=== PATIENT | female | born 1940 | race Caucasian/White ===

== ENCOUNTER → 2024-02-14 08:13 | Outpatient (CLI) | payer MEDICARE, OTHER, SELFPAY ==
--- NOTE | 2024-02-14 | DI.ECHO.S_ITS ---
[facility] : : [address] : : [place] : : [id number] : : Phone: [phone] Echocardiogram Report + + :Name: BETHANY MORA Study Date: 02/14/2024 Height: 64 in : :[facility] ReadingLocation: Weight: 122 lb : : Gender: Female BSA: 1.6 m2 : :: 1940 Age: 84 yrs BP: 151/82 mmHg: :Reason For Study: AV BLOCK : :Ordering Physician: NURIS, : :CARMINE Performed By: Kj Jean : :Referring: CARMINE ZEPEDA : + + Interpretation Summary 1) Normal left ventricular thickness, size, and systolic function (EF 55-60%). 2) Normal right ventricular size and function. There is a pacemaker lead in the right ventricle. 3) There is mild mitral regurgitation. 4) No prior Echo available for comparison. Procedure: A two-dimensional transthoracic echocardiogram with color flow and Doppler was performed. The study quality was technically difficult. There is no prior echocardiogram noted for this patient. The patient was in normal sinus rhythm during the exam. Left Ventricle: The left ventricle is normal in size. There is normal left ventricular wall thickness. There is no ventricular septal defect visualized. The ejection fraction is estimated to be 55-60%. Apical wall motion abnormality may reflect pacemaker activation. There is a significant dyssynchronous contraction pattern due to the paced rhythm. Right Ventricle: The right ventricle is normal in size and function. There is a pacemaker lead in the right ventricle. Atria: The left atrium grossly appears normal in size. The left atrium is not well visualized. Right atrial size is normal. There is a catheter/pacemaker lead seen in the right atrium. There is no Doppler evidence for an atrial septal defect. Mitral Valve: The mitral valve is normal in structure and function. There is moderate to severe mitral annular calcification. There is mild mitral regurgitation. Aortic Valve: The aortic valve is trileaflet. The aortic valve is moderately calcified. There is no aortic valve stenosis. No aortic regurgitation is present. Tricuspid Valve: The tricuspid valve is normal in structure and function. There is mild tricuspid regurgitation. The right ventricular systolic pressure is estimated to be at least 28 mmHg based on an estimated right atrial pressure of 3 mm Hg. Pulmonic Valve: The pulmonic valve is normal in structure and function. There is trace pulmonic regurgitation. Great Vessels: The aortic root is normal size. The dimensions of the ascending aorta are normal. The pulmonary artery is normal size. The IVC is of normal diameter and collapses greater than 50% with a sniff. This suggests a low right atrial pressure of 3 mm Hg. Pericardium/ Pleura There is no pericardial effusion. There is no pleural effusion. MMode/2D Measurements & Calculations LVIDd: 4.2 cm LVOT diam: 2.0 cm LVIDs: 2.8 cm Ao root diam: 3.0 cm FS: 33.4 % asc Aorta Diam: 3.2 cm EPSS: 1.2 cm Ao Arch Diam (Prox Trans): 2.4 cm IVSd: 1.0 cm LVPWd: 0.79 cm LV tony. diameter/BSA (cm/m^2): 2.6 LV sys. diameter/BSA (cm/m^2): 1.7 RA long axis: 5.0 cm RVD1 (basal): 3.0 cm RA area: 13.6 cm2 RVD2 (mid): 2.5 cm RA vol: 31.7 ml TAPSE: 2.6 cm RA : 20.0 ml/m2 IVC diam: 0.81 cm Doppler Measurements & Calculations Ao V2 max: 165.1 cm/sec LVOT Max Sulaiman: 110.9 cm/sec Ao V2 mean: 127.6 cm/sec LV V1 max P.9 mmHg Ao max P.9 mmHg LV V1 VTI: 25.6 cm Ao mean P.1 mmHg JANICE(I,D): 2.2 cm2 Ao V2 VTI: 36.4 cm JANICE(V,D): 2.1 cm2 sev ratio: 0.70 JANICE indexed to BSA (cm^2/m^2): 1.4 MV E max sulaiman: 67.1 cm/sec TR max sulaiman: 249.3 cm/sec MV A max sulaiman: 130.2 cm/sec TR max P.9 mmHg MV E/A: 0.52 PA V2 max: 64.6 cm/sec Med Peak E' Sulaiman: 4.2 cm/sec PA V2 mean: 49.8 cm/sec E/E' med: 15.8 PA mean P.1 mmHg Lat Peak E' Sulaiman: 4.9 cm/sec PA pr(Accel): 24.2 mmHg E/E' lat: 13.6 E/e' average: 14.7 MV dec time: 0.10 sec SV(LVOT): 79.3 ml Reading Physician:11:11 AM
== END ==
PROVIDERS: PCP Family Medicine; Referring Provider Internal Medicine Cardiovascular Disease; Visit Provider Internal Medicine Cardiovascular Disease
DX: I44.30 Unspecified atrioventricular block (principal); I08.1 Rheumatic disorders of both mitral and tricuspid valves
CPT/HCPCS: 93306

== ENCOUNTER → 2024-03-20 15:21 | Outpatient (CLI) | payer MEDICARE, OTHER, SELFPAY ==
--- NOTE | 2024-03-20 15:22 | DI.RAD.S_ITS ---
PROCEDURE: XR SKULL<4V INDICATIONS: fall, facial bruising, pain, L cheek TECHNIQUE: 3 view(s) of the skull acquired. COMPARISON: None. FINDINGS: Bones: No fractures. No suspicious bony lesions. Visualized sinuses appear clear. Soft tissues: No soft tissue calcifications. No suspicious soft tissue densities. IMPRESSION: Unremarkable skull radiographs Approved by: Star Vega M.D. on 03/20/2024 at 16:22
== END ==
PROVIDERS: PCP Family Medicine; Referring Provider Family Medicine; Visit Provider Family Medicine
DX: R51.9 Headache, unspecified (principal)
CPT/HCPCS: 70250

== ENCOUNTER 2024-08-24 08:38 | Emergency (ER) | payer MEDICARE, OTHER, SELFPAY ==
[2024-08-24] VITALS (9 sets, daily range): BP systolic 110–142; BP diastolic 62–81; PULSE 84–97; RESP 18; TEMP 36.7; O2SAT 95–100
[2024-08-24] MEDS: OXYMETAZOLINE NASAL SPRAY 30 ML 2 SPRAYS NASAL (09:02)
--- NOTE | 2024-08-24 09:06 | ED_ITS ---
HPI - Epistaxis General Chief complaint: Nasal Problem Stated complaint: NOSE BLEED Time Seen by Provider: 08/24/24 08:49 Source: patient Mode of arrival: Ambulatory History of Present Illness HPI Narrative: Patient is an 84-year-old female with epistaxis mostly from the right side. Reports that it started suddenly at around 6:30 a.m. in the morning. Not on anticoagulation or antiplatelet medication blood pressure controlled no prior history of epistaxis. Also complaining of painful frequent urination but having some burning sensation in her chest but only when she urinates. No fever chill or other symptoms. These symptoms have been ongoing for number of weeks. He was afebrile now. Related Data Home Medications Medication Instructions Recorded Confirmed atorvastatin 20 mg tablet mg PO 08/28/23 03/20/24 calcium carbonate (Calcium Antacid) 200 mg PO BID 08/28/23 03/20/24 cholecalciferol (vitamin D3) 325 325 mcg PO QWEEK 08/28/23 03/20/24 mcg (13,000 unit) capsule cyclosporine 0.05 % eye drops in a drp EYE-BOTH ONCE 08/28/23 03/20/24 dropperette (Restasis) ferric citrate 210 mg iron tablet 210 mg PO DAILY 08/28/23 03/20/24 (Auryxia) magnesium hydroxide 600 mg mg PO 08/28/23 03/20/24 chewable tablet (Dulcolax (magnesium hydroxide)) omega 5-qop-gdh-fish oil 100 cap PO 08/28/23 03/20/24 mg-160 mg-1,000 mg capsule (Fish Oil) selenium 50 mcg tablet 50 mcg PO DAILY 08/28/23 03/20/24 zinc acetate 50 mg (zinc) capsule 50 mg PO DAILY 08/28/23 03/20/24 (Galzin) Previous Rx's Medication Instructions Recorded alendronate 70 mg tablet 70 mg PO QWEEK #12 tabs 08/28/23 cephalexin 500 mg capsule 500 mg PO BID 7 days #14 caps 08/24/24 Allergies Allergy/AdvReac Type Severity Reaction Status Date / Time Naproxen AdvReac Unknown Uncoded 03/20/24 16:02 Patient History Medical History Osteopenia Anemia Heart block Hyperlipidemia Social History Smoking Status: Never smoker Smoking Status: Never smoker Exam Initial Vital Signs Initial Vital Signs: Vital Signs Blood Pressure 142/81 H 08/24/24 08:50 GENERAL: 84 year old patient appears stated age. Well-developed patient, in mild distress. HEAD: Atraumatic. Normocephalic. EYES: Pupils equal round and reactive. Extraocular motions intact. No scleral icterus. No injection or drainage. ENT: Right Evans anterior bleeding CARDIOVASCULAR: Pulse regular no cyanosis RESPIRATORY: No respiratory distress EXTREMITIES: No edema or joint tenderness. NEURO: AOx3. SKIN: No rash or erythema of visible areas Course Orders Ordered: ED Orders 08/24/24 09:30 Urine Culture Stat Urine Microscopic Stat Discontinued Medications Oxymetazoline HCl (Oxymetazoline Nasal [place] 30 Ml) 2 sprays NASAL NOW ONE Stop: 08/24/24 08:50 Last Admin: 08/24/24 09:02 Dose: 2 sprays Documented By: ROSALIA Vital Signs Vital signs: Vital Signs - 8 hr 08/24/24 08:50 08/24/24 08:51 08/24/24 08:53 Temperature 98.0 F Pulse Rate 84 92 H Respiratory Rate 18 Blood Pressure 142/81 H 142/81 H Pulse Oximetry 95 99 Oxygen Delivery Method Room Air 08/24/24 09:00 08/24/24 09:01 08/24/24 09:01 Temperature Pulse Rate 92 H 97 H Respiratory Rate Blood Pressure 130/73 Pulse Oximetry 100 99 Oxygen Delivery Method 08/24/24 09:15 08/24/24 09:38 08/24/24 09:39 Temperature Pulse Rate 91 H 97 H 89 Respiratory Rate Blood Pressure Pulse Oximetry 99 96 98 Oxygen Delivery Method 08/24/24 09:39 08/24/24 09:45 08/24/24 09:45 Temperature Pulse Rate 86 Respiratory Rate Blood Pressure 132/68 110/62 Pulse Oximetry 98 Oxygen Delivery Method MDM - Epistaxis Lab Data Labs: Lab Results 08/24/24 Range/Units 09:30 Urine RBC 1-5/hpf (0-5/HPF) Urine WBC 5-10/hpf H (0-5/HPF) Ur Squamous Epith Cells None seen (0-5/HPF) Urine Bacteria Many (>30) H (None) Ur Culture Indicated? Specimen cultured Vol Urine Centrifuged 10ml (spun) Urine Dip Bedside Urine Glucose Negative Bedside Urine Bilirubin - Negative Bedside Urine Ketone - Negative Urine Specific [place] 1.020 Bedside Urine Occult Blood +/- Bedside Urine pH 6.0 Bedside Urine Protein + 30 Bedside Urine Urobilinogen - Negative Bedside Urine Nitrite + Positive Bedside Urine Leukocytes ++ 125 Esterase MDM Narrative Medical decision making narrative: Patient 84-year-old female presenting today with epistaxis mostly from the right side. Do not really appreciate posterior epistaxis at this time. Initial nasal clamp placed with Afrin. Afrin seem to control it holding off packing for now. No further bleeding. He has been ambulatory to the restroom without further bleeding. Urinalysis is positive for nitrates and leukocytes At this time epistaxis controlled she was given nasal clip and Afrin and instructions on how to use it at home. Urinalysis positive for UTI but she does not have any sepsis vitals or concerns at this time. These symptoms have also been ongoing for a number of weeks. We will go ahead and treat her for UTI. Discharge Plan Departure Patient Disposition: Home Clinical Impression: Epistaxis, Acute UTI Instructions: DI for Urinary Tract Infection (UTI), DI for Nosebleed Activity Restrictions/Additional Instructions: *You have been diagnosed with nosebleed and UTI *What to do: At this time you do have a bladder infection which hopefully should start to feel better in the next couple of days with antibiotic If you should have further nose bleeding use Afrin 1-2 squirts in nose and nose clamp. You may also try a bag of ice to help with bleeding. If bleeding persists despite these things then returned to the ED *Continue to take medications as directed Keflex 500 mg twice a day 7 days *Follow up with your primary care provider in 2-3 days or call [phone] *Return to ER if you should have persistent nose bleeding increased confusion fevers [or] any new, worsening or concerning symptoms Prescriptions: New cephalexin 500 mg capsule 500 mg PO BID 7 Days Qty: 14 0RF No Action cyclosporine [Restasis] 0.05 % dropperette EYE-BOTH ONCE Patient Comments: [NO ORIGINAL SIG] atorvastatin 20 mg tablet PO Dulcolax (magnesium hydroxide) 600 mg tablet,chewable PO Auryxia 210 mg iron tablet 210 mg PO DAILY Rx Instructions: administer with a meal calcium carbonate [Calcium Antacid] 200 mg calcium (500 mg) tablet,chewable 200 mg PO BID Galzin 50 mg (zinc) capsule 50 mg PO DAILY cholecalciferol (vitamin D3) 325 mcg (13,000 unit) capsule 325 mcg PO QWEEK Fish Oil 100-160-1,000 mg capsule PO selenium 50 mcg tablet 50 mcg PO DAILY alendronate 70 mg tablet 70 mg PO QWEEK Qty: 12 4RF Referrals: Aracelis Fay MD [Primary Care Provider] - Stand Alone Forms: Patient Portal/API/Survey
[2024-08-24 10:32] LABS: Urine Volume 10mL (spun)
[2024-08-24 10:33] LABS: Bacteria Urine Many (>30); Culture Indicated Urine Specimen Cultured; RBC Urine 1-5/HPF (0-5/HPF); Squamous Epithelial Cell Urine None Seen (0-5/HPF); WBC Urine 5-10/HPF (0-5/HPF)
== END 2024-08-24 09:53 | disposition home or self-care (01) ==
PROVIDERS: Emergency Provider Emergency Medicine; PCP Family Medicine
DX: R04.0 Epistaxis (principal); N39.0 Urinary tract infection, site not specified
CPT/HCPCS: 81003; 81015; 87077; 87086; 87186; 99282

== ENCOUNTER → 2024-08-25 11:15 | Outpatient (CLI) | payer MEDICARE, OTHER, SELFPAY ==
--- NOTE | 2024-08-25 11:19 | DI.RAD.S_ITS ---
PROCEDURE: XR HIP W PEL IF DONE [place] MIN 4V INDICATIONS: severe acute onset pain x 2 days TECHNIQUE: AP pelvis with lateral view(s) of the bilateral hip(s). COMPARISON: None. FINDINGS: Bones: Likely chronic fracture deformity of the left medial pubic bone.. Pelvic ring appears intact. No suspicious bony lesions. [id number] bilateral hip joint degeneration. Decreased osseous mineralization. Degenerative changes of the visualized lower lumbar spine. Soft tissues: The visualized bowel gas pattern is normal. No suspicious soft tissue calcifications. Atherosclerotic vascular calcifications. IMPRESSION: Likely chronic fracture deformity of the left medial pubic bone. No prior imaging is available for comparison. Recommend clinical correlation. Otherwise, no definite acute fractures are seen. Dictated by: Howard Patel M.D. on 08/25/2024 at 12:04 Approved by: Howard Patel M.D. on 08/25/2024 at 12:05
[2024-08-25 12:08] LABS: Add Manual Diff / Slide Review NO; Basophils Absolute Auto 0 /uL (0-100); Basophils Percent Auto 0.4 % (0-2); Eosinophils Absolute Auto 100 /uL (0-450); Eosinophils Percent Auto 0.5 % (2-4); Hematocrit 30.4 % (36-46); Hemoglobin 10.4 g/dL (12.0-16.0); Lymphocytes Absolute Auto 1700 /uL (1100-4500); Lymphocytes Percent Auto 14.6 % (25-40); Mean Corpuscular HGB Conc 34.1 % (30-36); Mean Corpuscular Hemoglobin 31.4 PG (26-34); Mean Corpuscular Volume 92.2 fL (80-100); Monocytes Absolute Auto 1000 /uL (0-900); Monocytes Percent Auto 8.4 % (3-14); Neutrophils Absolute Auto 8900 /uL (1500-7000); Neutrophils Percent Auto 76.1 % (50-75); Platelet Count 295 X10^3/uL (150-400); Red Blood Cell Count 3.29 X10^6/uL (4.0-5.2); Red Cell Distribution Width 14.8 % (11.6-14.8); White Blood Cell Count 11.7 X10^3/uL (4.5-11.0)
[2024-08-25 12:31] LABS: Erythrocyte Sedimentation Rate 126 MM/HR (0-20)
[2024-08-25 12:49] LABS: Alanine Aminotransferase 18 IU/L (<35); Albumin 4.3 g/dL (3.5-5.0); Albumin Globulin Ratio 1.4 (1.0-2.8); Alkaline Phosphatase 86 U/L (38-126); Aspartate Aminotransferase 28 IU/L (14-36); BUN Creatinine Ratio 31.8 (6-22); Bilirubin Total 1.3 mg/dL (0.2-1.3); Blood Urea Nitrogen 27 mg/dL (7-17); Calcium 9.2 mg/dL (8.4-10.2); Carbon Dioxide 24 mmol/L (22-32); Chloride 99 mmol/L (98-107); Estimated Glomerular Filt Rate > 60 mL/min (>60); Glucose 114 mg/dL (70-99); HEMOLYSIS < 15 (0-50); Potassium 4.7 mmol/L (3.4-5.1); Sodium 133 mmol/L (137-145); Total Protein 7.3 g/dL (6.3-8.2)
== END ==
PROVIDERS: PCP Family Medicine; Referring Provider Physician Assistant; Visit Provider Physician Assistant
DX: M25.552 Pain in left hip (principal)
CPT/HCPCS: 36415; 73522; 80053; 84550; 85025; 85651

== ENCOUNTER → 2024-08-27 13:04 | Outpatient (CLI) | payer MEDICARE, OTHER, SELFPAY ==
--- NOTE | 2024-08-27 13:06 | DI.CT.S_ITS ---
PROCEDURE: CT PEL WO CON INDICATIONS: R/O SEPTIC ARTHRITIS HIP TECHNIQUE: Noncontrast 3 mm axial sections acquired through the bony pelvis, with coronal and sagittal reformatting. For radiation dose reduction, the following was used: automated exposure control, adjustment of mA and/or kV according to patient size. COMPARISON: [facility], CR, XR HIP W PEL IF DONE [place] 3TO4V, 08/25/2024, 11:37. FINDINGS: Image quality: Excellent. Bones: No acute osseous fracture or dislocation. Chronic posttraumatic deformity is seen in the left superior and inferior pubic rami. No acute osseous erosion is seen adjacent to the left hip. Chronic degenerative changes are seen with joint space narrowing , subchondral cystic changes, and marginal osteophytes. Degenerative changes are seen at the pubic symphysis, right hip, and included spine. Grade 1 anterolisthesis of L5 on S1 secondary to facet hypertrophy. Soft tissues: No significant left hip effusion is seen. Chondrocalcinosis. Small fat containing right inguinal hernia. Colonic diverticulosis. No acute abnormality is seen in the soft tissues of the pelvis. The musculature surrounding the hips is age-appropriate in bulk. The articular cartilages, ligaments, tendons are not well evaluated with CT. Arterial vascular calcifications are present. IMPRESSION: 1. No CT signs of left hip septic arthritis. No acute osseous abnormality is seen. 2. Degenerative changes in the hips, pubic symphysis, and included spine. 3. Chondrocalcinosis. 4. 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 Approved by: Dalton Oreilly M.D. on 08/28/2024 at 9:44
== END ==
PROVIDERS: PCP Family Medicine; Referring Provider Orthopaedic Surgery; Visit Provider Orthopaedic Surgery
DX: N30.00 Acute cystitis without hematuria (principal); M16.12 Unilateral primary osteoarthritis, left hip; M11.259 Other chondrocalcinosis, unspecified hip; M47.817 Spondylosis without myelopathy or radiculopathy, lumbosacral region; K40.90 Unilateral inguinal hernia, without obstruction or gangrene, not specified as recurrent; K57.90 Diverticulosis of intestine, part unspecified, without perforation or abscess without bleeding; M95.5 Acquired deformity of pelvis
CPT/HCPCS: 72192

== ENCOUNTER 2024-08-31 08:33 | Emergency (ER) | payer MEDICARE, OTHER, SELFPAY ==
[2024-08-31] VITALS (11 sets, daily range): BP systolic 112–155; BP diastolic 69–86; PULSE 63–101; RESP 18; TEMP 36.2; O2SAT 68–100; BMI 21.5
--- NOTE | 2024-08-31 09:23 | ED.EPISTAXIS ---
HPI - Epistaxis General Chief complaint: Nasal Problem Stated complaint: nose bleeding since 6 am this morning Time Seen by Provider: 08/31/24 09:22 Source: patient Mode of arrival: Ambulatory History of Present Illness HPI Narrative: Patient is a 84-year-old female history of hyperlipidemia osteoporosis presenting today with epistaxis. She reports that last night she her finger up her nose and this morning at 6:00 a.m. had pretty significant bleeding out of her right side. This is her 2nd nosebleed in about 1 week. I saw her last week for the same. Bleeding stopped with Afrin and nasal clip. She reports that the rest of the week was fine. However last night she did put her finger up there and this morning it was bleeding. After nasal clamp bleeding has now seemed to stop. She was treated for a UTI with Keflex. Last week she was also having some hip pain seen at a walk-in clinic got an x-ray. Also went to an orthopedic surgeon in [place] where she had a CT and blood work. She has not had any fever or chills. Generally feels like her UTI has improved. Related Data Home Medications Medication Instructions Recorded Confirmed atorvastatin 20 mg tablet mg PO 08/28/23 08/25/24 calcium carbonate (Calcium Antacid) 200 mg PO BID 08/28/23 08/25/24 cholecalciferol (vitamin D3) 325 325 mcg PO QWEEK 08/28/23 08/25/24 mcg (13,000 unit) capsule cyclosporine 0.05 % eye drops in a drp EYE-BOTH ONCE 08/28/23 08/25/24 dropperette (Restasis) ferric citrate 210 mg iron tablet 210 mg PO DAILY 08/28/23 08/25/24 (Auryxia) magnesium hydroxide 600 mg mg PO 08/28/23 08/25/24 chewable tablet (Dulcolax (magnesium hydroxide)) omega 4-jyx-dxt-fish oil 100 cap PO 08/28/23 08/25/24 mg-160 mg-1,000 mg capsule (Fish Oil) selenium 50 mcg tablet 50 mcg PO DAILY 08/28/23 08/25/24 zinc acetate 50 mg (zinc) capsule 50 mg PO DAILY 08/28/23 08/25/24 (Galzin) Previous Rx's Medication Instructions Recorded alendronate 70 mg tablet 70 mg PO QWEEK #12 tabs 08/28/23 Allergies Allergy/AdvReac Type Severity Reaction Status Date / Time Naproxen AdvReac Unknown Uncoded 08/25/24 10:38 Patient History Medical History Osteopenia Anemia Heart block Hyperlipidemia Social History Smoking Status: Never smoker Smoking Status: Never smoker Exam Initial Vital Signs Initial Vital Signs: Vital Signs Temperature 97.2 F L 08/31/24 08:40 Pulse Rate 84 08/31/24 08:40 Respiratory Rate 18 08/31/24 08:40 Blood Pressure 155/72 H 08/31/24 08:40 Pulse Oximetry 99 08/31/24 08:40 Oxygen Delivery Method Room Air 08/31/24 08:40 GENERAL: Alert pleasant well-appearing 84-year-old female NOSE: Large clot in right naris no active bleeding CARDIOVASCULAR: peripheral pulses in tact, cap refill <2 sec RESPIRATORY: No respiratory distress, speaks in full sentences without difficulty EXTREMITIES: Normal range of motion, no clubbing or edema. Neurovascularly intact NEUROLOGICAL: Cranial nerves II through XII grossly intact. Normal gait and speech. SKIN: Warm, dry, no petechiae, no rashes or lesions. Course Orders Ordered: Discontinued Medications Oxymetazoline HCl (Oxymetazoline Nasal [place] 30 Ml) 2 sprays NASAL NOW ONE Stop: 08/31/24 09:23 Last Admin: 08/31/24 09:31 Dose: 2 sprays Documented By: MPO Vital Signs Vital signs: Vital Signs - 8 hr 08/31/24 10:30 08/31/24 10:41 08/31/24 10:42 Pulse Rate 75 Blood Pressure 120/74 127/69 Pulse Oximetry 68 L 08/31/24 10:42 Pulse Rate 63 Blood Pressure Pulse Oximetry 88 L MDM - Epistaxis Lab Data Labs: Urine Dip Bedside Urine Glucose Negative Bedside Urine Bilirubin - Negative Bedside Urine Ketone - Negative Urine Specific [place] 1.020 Bedside Urine Occult Blood - Negative Bedside Urine pH 6.0 Bedside Urine Protein +/- 15 Bedside Urine Urobilinogen - Negative Bedside Urine Nitrite - Negative Bedside Urine Leukocytes - Negative Esterase MDM Narrative Medical decision making narrative: Patient 84-year-old female presenting today with epistaxis. Bleeding has now stopped with nasal clip. She was treated for UTI which grew E coli and she was placed on Keflex. Urinalysis today is clear. Patient did have some recurrent bleeding Afrin and nasal. Clamp replace Bleeding has now stopped. At this time supportive care only Discharge Plan Departure Patient Disposition: Home Clinical Impression: Epistaxis Instructions: DI for Nosebleed Activity Restrictions/Additional Instructions: *You have been diagnosed with epistaxis *What to do: At this time use Afrin and nasal clamp as needed for bleeding. If you continue to have nosebleeds you will need to see ENT for evaluation and possible cauterization No evidence of bladder infection today *Continue to take medications as directed *Follow up with your primary care provider in 2-3 days or call [phone] *Return to ER if you should have any new, worsening or concerning symptoms Prescriptions: No Action cyclosporine [Restasis] 0.05 % dropperette EYE-BOTH ONCE Patient Comments: [NO ORIGINAL SIG] atorvastatin 20 mg tablet PO Dulcolax (magnesium hydroxide) 600 mg tablet,chewable PO Auryxia 210 mg iron tablet 210 mg PO DAILY Rx Instructions: administer with a meal calcium carbonate [Calcium Antacid] 200 mg calcium (500 mg) tablet,chewable 200 mg PO BID Galzin 50 mg (zinc) capsule 50 mg PO DAILY cholecalciferol (vitamin D3) 325 mcg (13,000 unit) capsule 325 mcg PO QWEEK Fish Oil 100-160-1,000 mg capsule PO selenium 50 mcg tablet 50 mcg PO DAILY alendronate 70 mg tablet 70 mg PO QWEEK Qty: 12 4RF Referrals: Aracelis Fay MD [Primary Care Provider] - Stand Alone Forms: Patient Portal/API/Survey
[2024-08-31] MEDS: OXYMETAZOLINE NASAL SPRAY 30 ML 2 SPRAYS NASAL (09:31)
--- NOTE | 2024-08-31 10:03 | PC.NURSE ---
Pt spit out large blood clot into sink. Bleeding again from right nostril. Dr Naranjo notified and 2 pumps of affrin in right nostril.
== END 2024-08-31 11:15 | disposition home or self-care (01) ==
PROVIDERS: Emergency Provider Emergency Medicine; PCP Family Medicine
DX: R04.0 Epistaxis (principal)
CPT/HCPCS: 81003; 99282

== ENCOUNTER → 2024-09-05 10:31 | Outpatient (CLI) | payer MEDICARE, OTHER, SELFPAY | PROVIDERS: PCP Family Medicine; Visit Provider Physician Assistant Surgical | DX: R30.0 Dysuria (principal) | CPT/HCPCS: 87077; 87086 ==

== ENCOUNTER → 2024-10-27 07:37 | Outpatient (CLI) | payer MEDICARE, OTHER, SELFPAY ==
--- NOTE | 2024-10-27 17:32 | DI.NM.S_ITS ---
DATE OF SERVICE: 10/27/2024 STUDY: Pharmacological perfusion study. INDICATIONS: Chest pain with underlying pacemaker, hyperlipidemia. RADIOPHARMACEUTICAL: 25.2 millicurie technetium-99m Myoview IV was injected at stress and 11.7 millicurie technetium-99m Myoview IV was injected at rest. CARDIAC STRESS: The patient underwent IV Lexiscan perfusion study under the supervision of an attending staff using standard IV Lexiscan as per protocol. Baseline rhythm A-sensed and ventricular-paced rhythm. During stress, no convincing ischemic changes. No new significant arrhythmias. Minimal dyspnea. No chest discomfort. Baseline blood pressure 120/80. RAW DATA: There is increased subdiaphragmatic activity. Gut shadow encroaching the inferior border of the heart. Breast shadow was seen as well. GATED STUDY: Resting LV ejection fraction 78% and stress LV ejection fraction 86%. No obvious wall motion abnormalities. Resting end- diastolic volume 92 mL. TID ratio 0.81, which is within normal limits. Lung/heart ratio 0.25, which is within normal limits. MYOCARDIAL PERFUSION SCAN: There are no prone images. Stress supine and resting supine images were compared to each other. There is a predominantly fixed, small size, moderately decreased perfusion of distal septum and inferior apex without any reversible ischemia. CONCLUSION: There is a predominantly fixed, small size, moderately decreased perfusion of distal septum and inferior apex. Likely due to pacemaker induced. On gated study, there are no wall motion abnormalities. Hyperdynamic LV function. However, possibility of small infarction in that area cannot be ruled out. No reversible ischemia. Overall, low-risk myocardial perfusion scan. Mirian Molina - [facility]/belkis/RHEA doc#: [id number]/job#: [id number] dd: 10/27/2024 17:14:00 dt: 10/27/2024 17:23:00 DICTATING MD/COPIES TO: Ling Barron MD COPIES MNE: WANDA;
== END ==
PROVIDERS: PCP Family Medicine; Referring Provider Family Medicine; Visit Provider Internal Medicine Cardiovascular Disease
DX: R07.9 Chest pain, unspecified (principal); E78.5 Hyperlipidemia, unspecified; Z95.0 Presence of cardiac pacemaker
CPT/HCPCS: 78452; 93017; A9502; J2785

== ENCOUNTER → 2025-03-26 14:22 | Outpatient (CLI) | payer MEDICARE, OTHER, SELFPAY ==
[2025-03-26 15:14] LABS: Add Manual Diff / Slide Review NO; Hematocrit 37.4 % (36-46); Hemoglobin 12.5 g/dL (12.0-16.0); Lymphocytes Absolute Auto 1900 /uL (1100-4500); Mean Corpuscular HGB Conc 33.4 % (30-36); Mean Corpuscular Hemoglobin 30.7 PG (26-34); Mean Corpuscular Volume 91.7 fL (80-100); Platelet Count 284 X10^3/uL (150-400)
== END ==
PROVIDERS: PCP Internal Medicine; Referring Provider Internal Medicine; Visit Provider Internal Medicine
DX: D64.9 Anemia, unspecified (principal)
CPT/HCPCS: 36415; 85025